=== PATIENT | male | born 2005 | race Caucasian/White ===

== ENCOUNTER 2023-07-20 19:08 | Outpatient (REF) | payer MEDICAID, SELFPAY ==
[2023-07-21 11:50] LABS: CT PCR NOT DETECTED (Not Detect.); NG PCR NOT DETECTED (Not Detect.)
== END 2023-07-20 19:09 | disposition home or self-care (01) ==
LOC: HO.CHCLNP 19:08
PROVIDERS: Visit Provider Family Medicine
DX: Z11.3 Encounter for screening for infections with a predominantly sexual mode of transmission (principal)
CPT/HCPCS: 0353U